=== PATIENT | female | born 1940 | race African-American/Black ===

== ENCOUNTER 2018-06-06 15:37 | Inpatient (IN) | payer OTHER ==
[~2018-06-06] VITALS: Ht 172.7 cm; Wt 97.1 kg
[2018-06-06] MEDS ORDERED: Sodium Chloride 500ML 500 ML IV ONE (16:04)
[2018-06-06] MEDS ORDERED: Solu-MEDROL 125mg Inj IVP ONE (16:15)
[2018-06-06] MEDS ORDERED: Albuterol ud Inhalation HHN ONE (16:15)
[2018-06-06] MEDS ORDERED: Ipratropium 0.02% Inh Soln 2.5ml UD HHN ONE (16:15)
[2018-06-06 16:30] LABS: EOSINOPHILS % (AUTO) 1.2 % (0.0-3.0); HEMATOCRIT 34.6 % (37.0-47.0); HEMOGLOBIN 11.2 G/DL (12.0-16.0); LYMPHOCYTES % (AUTO) 21.3 % (20.0-45.0); MEAN CORPUSCULAR VOLUME 77 FL (80-99); MONOCYTES % (AUTO) 4.9 % (1.0-10.0); NEUTROPHILS % (AUTO) 69.6 % (45.0-75.0); PLATELET COUNT 647 K/UL (150-450); RED CELL DISTRIBUTION WIDTH 15.2 % (11.6-14.8); WHITE BLOOD COUNT 14.9 K/UL (4.8-10.8)
[2018-06-06 16:38] LABS: ANION GAP 10 mmol/L (5-15); BLOOD UREA NITROGEN 15 mg/dL (7-18); CALCIUM 9.5 MG/DL (8.5-10.1); CARBON DIOXIDE 26 MMOL/L (21-32); CHLORIDE 104 MMOL/L (98-107); CREATININE 1.6 MG/DL (0.55-1.30); POTASSIUM 4.3 MMOL/L (3.5-5.1); SODIUM 140 MMOL/L (136-145)
[2018-06-06 16:42] VITALS: BP 162/77
[2018-06-06 16:46] LABS: ALANINE AMINOTRANSFERASE 23 U/L (12-78); ALBUMIN 3.4 G/DL (3.4-5.0); ALBUMIN/GLOBULIN RATIO 0.8 (1.0-2.7); ALKALINE PHOSPHATASE 67 U/L (46-116); ASPARTATE AMINO TRANSFERASE 13 U/L (15-37); BILIRUBIN,TOTAL 0.3 MG/DL (0.2-1.0); CKMB 1.1 NG/ML (0.0-3.6); CREATINE KINASE 62 U/L (26-308)
--- NOTE | 2018-06-06 17:26 | Diagnostic Imaging Report ---
Indication: Reason For Exam: SOB Technique: One view of the chest Comparison: none Findings: The lungs and pleural spaces are clear. The heart size is normal. Atelectatic bands versus scarring are seen at the right lung base and left suprahilar region Impression: No acute process. Findings as noted
[2018-06-06 18:06] LABS: APPEARANCE,URINE CLEAR; BILIRUBIN, URINE NEGATIVE (NEGATIVE); COLOR,URINE PALE YELLOW; GLUCOSE, URINE (UA) NEGATIVE (NEGATIVE); KETONES,URINE NEGATIVE (NEGATIVE); LEUKOCYTE ESTERASE ,URINE NEGATIVE (NEGATIVE); NITRITE,URINE NEGATIVE (NEGATIVE); PH,URINE 6.5 (4.5-8.0); PROTEIN,URINE NEGATIVE (NEGATIVE); UROBILINOGEN,URINE NORMAL MG/DL (0.0-1.0)
[2018-06-06] MEDS ORDERED: SYMBICORT 16010.2 G1 IH (19:16)
[2018-06-06] MEDS ORDERED: METFORMIN HCL500 M1 ORAL ×2 (19:16→21:00)
[2018-06-06] MEDS ORDERED: TORSEMIDE10 MG PO (19:16)
[2018-06-06] MEDS ORDERED: COLACE100 MG ORAL (19:16)
[2018-06-06] MEDS ORDERED: ASPIR 8181 MG ORAL (19:16)
[2018-06-06] MEDS ORDERED: BUSPAR10 MG ORAL (19:16)
[2018-06-06] MEDS ORDERED: LORAZEPAM0.5 MG ORAL (19:16)
--- NOTE | 2018-06-06 19:25 | Emergency Room Report ---
History of Present Illness General Chief Complaint: Dyspnea/Respdistress Source: Patient, Family Member, EMS Present Illness HPI 77-year-old female presents ED for evaluation patient brought in by EMS for evaluation of shortness of breath and weakness times one week. History of COPD. Complaining of cough. Denies chest pain. Denies fevers or chills. States she is on home oxygen but feels more short of breath than usual. Also states she feels very weak with poor appetite. States that she was recently started on buspirone. Recent admission to [facility] for COPD and [facility]. Denies leg swelling. No other aggravating relieving factors. Denies any other associated symptoms Allergies: Coded Allergies: No Known Allergies (Unverified , 06/06/18) Patient History Past Medical History: DM, HTN, COPD Past Surgical History: none Pertinent Family History: none Social History: Denies: smoking, alcohol use, drug use Now: No Immunizations: UTD Reviewed Nursing Documentation: PMH: Agreed; PSxH: Agreed Nursing Documentation-PMH Past Medical History: No History, Except For Hx Cardiac Problems: No - CHF Hx Hypertension: Yes Hx COPD: Yes Hx Diabetes: Yes Review of Systems All Other Systems: negative except mentioned in HPI Physical Exam Vital Signs Date Time Temp Pulse Resp B/P (MAP) Pulse Ox O2 Delivery O2 Flow Rate FiO2 06/06/18 15:30 98.6 88 20 155/76 91 Room Air 06/06/18 16:37 28 06/06/18 16:41 2.0 Sp02 EP Interpretation: reviewed, normal General Appearance: no apparent distress, alert, GCS 15, non-toxic Head: normocephalic, atraumatic Eyes: bilateral eye normal inspection, bilateral eye PERRL ENT: hearing grossly normal, normal pharynx, no angioedema, normal voice Neck: full range of motion, supple/symm/no masses Respiratory: chest non-tender, normal breath sounds, speaking full sentences, wheezing Cardiovascular #1: regular rate, rhythm, no edema Cardiovascular #2: 2+ carotid (R), 2+ carotid (L), 2+ radial (R), 2+ radial (L) , 2+ dorsalis pedis (R), 2+ dorsalis pedis (L) Gastrointestinal: normal bowel sounds, non tender, soft, non-distended, no guarding, no rebound Rectal: deferred Genitourinary: normal inspection, no CVA tenderness Musculoskeletal: back normal, gait/station normal, normal range of motion, non- tender Neurologic: alert, oriented x3, responsive, motor strength/tone normal, sensory intact, speech normal Psychiatric: judgement/insight normal, memory normal, mood/affect normal, no suicidal/homicidal ideation Reflexes: 3+ bicep (R), 3+ bicep (L), 3+ tricep (R), 3+ tricep (L), 3+ knee (R) , 3+ knee (L) Skin: normal color, no rash, warm/dry, well hydrated Lymphatic: no adenopathy Medical Decision Making Diagnostic Impression: Primary Impression: COPD exacerbation Additional Impression: Renal insufficiency ER Course Hospital Course 77-year-old F presenting to ED with SOB. h/o COPD Differential diagnoses include: Pneumonia, CHF exacerbation, pneumothorax, fluid overload Clinical course Patient placed on stretcher. 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 After initial history and physical, I ordered nebulizer treatments. I ordered labs, IV fluids, EKG, chest x-ray, blood cultures, UA. Labs - no leukocytosis noted, hemoglobin/hematocrit stable, Cr 1.6, lactate okay , troponins negative CXR - no infiltrates EKG - NSR, some PVCs, no acute ischemic changes interpreted by me given abx. discussed findings with patient and family Case discussed with Dr. Marte and he agreed to the patient to his service for further care and support I feel this is a highly complex case requiring extensive working including EKG/ Rhythm strip, Xray/CT/US, Blood/urine lab work, repeat exams while in ED, and administration of strong opiates/narcotics for pain control, admission to hospital or close patient follow up. Diagnosis - COPD exacerbation, renal insufficiency Patient admitted to telemetry in serious condition Labs Test 06/06/18 16:00 06/06/18 17:38 White Blood Count 14.9 K/UL (4.8-10.8) Red Blood Count 4.50 M/UL (4.20-5.40) Hemoglobin 11.2 G/DL (12.0-16.0) Hematocrit 34.6 % (37.0-47.0) Mean Corpuscular Volume 77 FL (80-99) Mean Corpuscular Hemoglobin 24.8 PG (27.0-31.0) Mean Corpuscular Hemoglobin Concent 32.2 G/DL (32.0-36.0) Red Cell Distribution Width 15.2 % (11.6-14.8) Platelet Count 647 K/UL (150-450) Mean Platelet Volume 5.8 FL (6.5-10.1) Neutrophils (%) (Auto) 69.6 % (45.0-75.0) Lymphocytes (%) (Auto) 21.3 % (20.0-45.0) Monocytes (%) (Auto) 4.9 % (1.0-10.0) Eosinophils (%) (Auto) 1.2 % (0.0-3.0) Basophils (%) (Auto) 3.0 % (0.0-2.0) Sodium Level 140 MMOL/L (136-145) Potassium Level 4.3 MMOL/L (3.5-5.1) Chloride Level 104 MMOL/L (98-107) Carbon Dioxide Level 26 MMOL/L (21-32) Anion Gap 10 mmol/L (5-15) Blood Urea Nitrogen 15 mg/dL (7-18) Creatinine 1.6 MG/DL (0.55-1.30) Estimat Glomerular Filtration Rate mL/min (>60) Glucose Level 82 MG/DL (74-106) Lactic Acid Level 1.40 mmol/L (0.4-2.0) Calcium Level 9.5 MG/DL (8.5-10.1) Total Bilirubin 0.3 MG/DL (0.2-1.0) Aspartate Amino Transf (AST/SGOT) 13 U/L (15-37) Alanine Aminotransferase (ALT/SGPT) 23 U/L (12-78) Alkaline Phosphatase 67 U/L (46-116) Total Creatine Kinase 62 U/L (26-308) Creatine Kinase MB 1.1 NG/ML (0.0-3.6) Creatine Kinase MB Relative Index 1.7 Troponin I 0.002 ng/mL (0.000-0.056) Pro-B-Type Natriuretic Peptide 648 pg/mL (0-125) Total Protein 7.8 G/DL (6.4-8.2) Albumin 3.4 G/DL (3.4-5.0) Globulin 4.4 g/dL Albumin/Globulin Ratio 0.8 (1.0-2.7) Urine Color Pale yellow Urine Appearance Clear Urine pH 6.5 (4.5-8.0) Urine Specific [place] 1.010 (1.005-1.035) Urine Protein Negative (NEGATIVE) Urine Glucose (UA) Negative (NEGATIVE) Urine Ketones Negative (NEGATIVE) Urine Blood Negative (NEGATIVE) Urine Nitrite Negative (NEGATIVE) Urine Bilirubin Negative (NEGATIVE) Urine Urobilinogen Normal MG/DL (0.0-1.0) Urine Leukocyte Esterase Negative (NEGATIVE) EKG Diagnostic Results Rate: normal Rhythm: NSR ST Segments: no acute changes ASA given to the pt in ED: No Rhythm Strip Diag. Results EP Interpretation: yes Rhythm: NSR, other - PVCs Chest X-Ray Diagnostic Results Chest X-Ray Diagnostic Results : Chest X-Ray Ordered: Yes # of Views/Limited/Complete: 1 View Indication: Shortness of Breath EP Interpretation: Yes Interpretation: no pneumothorax, no acute cardiopulmonary disease, other - atelectasis Impression: No acute disease Electronically Signed by: Electronically signed by Phoenix Gómez MD Last Vital Signs Date Time Temp Pulse Resp B/P (MAP) Pulse Ox O2 Delivery O2 Flow Rate FiO2 06/06/18 16:42 98.0 74 17 162/77 100 Nasal Cannula 2.0 06/06/18 16:41 100 Status: improved Disposition: ADMITTED INPATIENT Condition: Serious Referrals: [facility],REFERRING (PCP) Phoenix Gómez MD Jun 06, 2018 19:25
[2018-06-06 19:30] VITALS: BP 165/64
[2018-06-06] MEDS ORDERED: AMBIEN5 MG ORAL (21:00)
[2018-06-06] MEDS ORDERED: TORSEMIDE5 MG ORAL (21:00)
[2018-06-06] MEDS ORDERED: GABAPENTIN300 MG ORAL (21:00)
[2018-06-06] MEDS ORDERED: LOSARTAN POTAS100 MG ORAL (21:00)
[2018-06-06] MEDS ORDERED: METOPROLOL TART25 MG ORAL (21:00)
[2018-06-06] MEDS ORDERED: BUSPIRONE HCL10 M1 ORAL (21:00)
[2018-06-06] MEDS ORDERED: INCRUSE ELLI62.5 MCG IH (21:00)
[2018-06-06] MEDS ORDERED: LORAZEPAM0.5 GM MC (21:00)
[2018-06-06] MEDS ORDERED: GLIMEPIRIDE1 MG ORAL (21:00)
[2018-06-06] MEDS ORDERED: ATORVASTATIN CA20 MG ORAL (21:00)
[2018-06-06] MEDS ORDERED: NEXIUM2.5 MG ORAL (21:00)
[2018-06-06] MEDS ORDERED: ASPIRIN81 M3 PO (21:00)
[2018-06-06 21:45] VITALS: BP 146/88
[2018-06-06] MEDS ORDERED: Miralax 17gm pkt ORAL PRN (22:15)
[2018-06-06] MEDS ORDERED: Zolpidem 5mg tab ORAL PRN (22:15)
[2018-06-06] MEDS ORDERED: Nitroglycerin Subl 0.4mg tab SL PRN (22:15)
[2018-06-06] MEDS: Albuterol/Ipratropium 3ml neb HHN SCH (23:17)
[2018-06-07] VITALS: BP 137/68
[2018-06-07] MEDS: Albuterol/Ipratropium 3ml neb HHN SCH ×6 (03:54→23:11)
[2018-06-07 04:00] VITALS: BP 135/71
[2018-06-07 08:00] VITALS: BP 124/66
--- NOTE | 2018-06-07 08:57 | History & Physical ---
History and Physical History & Physicial dict Santana Marte MD Jun 07, 2018 08:57
[2018-06-07] MEDS ORDERED: metFORMIN 500mg tab ORAL SCH (09:00)
[2018-06-07] MEDS ORDERED: Docusate 100mg cap ORAL SCH (09:00)
[2018-06-07] MEDS: Depo-Medrol 80mg Vial IARTIC ONE ×2 (09:00→09:08)
[2018-06-07] MEDS: Metoprolol 25mg tab ORAL SCH (09:01)
[2018-06-07] MEDS: Aspirin Baby 81mg ORAL SCH (09:02)
[2018-06-07] MEDS: Docusate 100mg cap ORAL SCH ×2 (09:02→20:47)
[2018-06-07] MEDS: BusPIRone 10mg Tab ORAL SCH ×3 (09:02→17:09)
[2018-06-07] MEDS: Losartan 50mg tab ORAL SCH (09:03)
[2018-06-07] MEDS: Heparin 5000 units/ml inj SUBQ SCH ×2 (09:04→20:48)
[2018-06-07 09:56] LABS: BASOPHILS % (AUTO) 0.5 % (0.0-2.0); HEMATOCRIT 33.2 % (37.0-47.0); HEMOGLOBIN 10.7 G/DL (12.0-16.0); LYMPHOCYTES % (AUTO) 10.6 % (20.0-45.0); MEAN CORPUSCULAR VOLUME 77 FL (80-99); MONOCYTES % (AUTO) 5.3 % (1.0-10.0); NEUTROPHILS % (AUTO) 83.6 % (45.0-75.0); PLATELET COUNT 491 K/UL (150-450); RED BLOOD COUNT 4.32 M/UL (4.20-5.40); RED CELL DISTRIBUTION WIDTH 16.1 % (11.6-14.8); WHITE BLOOD COUNT 13.5 K/UL (4.8-10.8)
[2018-06-07 10:03] LABS: ANION GAP 13 mmol/L (5-15); BLOOD UREA NITROGEN 20 mg/dL (7-18); CALCIUM 9.1 MG/DL (8.5-10.1); CARBON DIOXIDE 22 MMOL/L (21-32); CHLORIDE 104 MMOL/L (98-107); CREATININE 1.7 MG/DL (0.55-1.30); POTASSIUM 5.3 MMOL/L (3.5-5.1); SODIUM 139 MMOL/L (136-145)
[2018-06-07] MEDS: Torsemide 10mg tab ORAL SCH (10:58)
[2018-06-07 12:00] VITALS: BP 101/62
--- NOTE | 2018-06-07 12:45 | History and Physical Report ---
DATE OF ADMISSION: 06/06/2018 HISTORY OF PRESENT ILLNESS: The patient is a 77-year-old woman, who was admitted with shortness of breath. She states she has had one or two days of increasing shortness of breath. She has some cough with clear to yellow sputum. She has no high fever and no chest pain. She was seen in the emergency department and found to have exacerbation of COPD and admission was arranged. She is feeling better after receiving breathing treatments and steroids. She was recently tapered off of steroids since recent discharge from [facility] about a month ago. She spent a short time at [facility] and then has been home. ALLERGIES: Morphine, amlodipine, and atorvastatin. MEDICATIONS: Albuterol inhaler, baby aspirin, atorvastatin (note, allergy listed above), Symbicort, BuSpar, Colace, Nexium, gabapentin, glimepiride, lorazepam, losartan, metformin, Spiriva, torsemide, Incruse, and Ambien. This medication list may be inaccurate. PAST MEDICAL HISTORY: COPD, coronary heart disease, lung cancer resected right lung in 2001, aortic atherosclerosis, carotid artery disease, chronic heart failure, hyperlipidemia, hypertension, peripheral artery disease, secondary hyperparathyroidism, diabetes with polyneuropathy, thrombocytosis, chronic anxiety, panic disorder, sedative dependence, and generalized weakness. REVIEW OF SYSTEMS: Otherwise unremarkable. PAST SURGICAL HISTORY: Includes right lower lobectomy and several VATS wedge resections for lung cancer, carotid endarterectomy, endoscopy, hysterectomy, cholecystectomy, cataract surgery, and angioplasty with stent. SOCIAL HISTORY: She is a past smoker. She does not drink or use drugs. FAMILY HISTORY: The parents are . There is a family history of alcohol abuse and rheumatoid arthritis and stroke. PHYSICAL EXAMINATION: GENERAL: The patient is alert and responds appropriately. She is ambulating to the bathroom independently. VITAL SIGNS: Stable. She is overweight at 169 pounds and 68 inches in height. The blood pressure has been somewhat elevated at 165/64, but today is down to 135/71. SKIN: Warm and dry. HEAD: Normocephalic. NECK: No jugular venous distention. CHEST: Decreased breath sounds, but no wheezing or consolidation. CARDIAC: Rhythm is regular without murmur or gallop. ABDOMEN: Soft and nontender. Liver and spleen not enlarged. EXTREMITIES: No clubbing, cyanosis, or edema. LABORATORY AND DIAGNOSTIC DATA: Chest x-ray is negative. Laboratory studies showed white count is elevated at 14,900, hemoglobin is 11.2 with microcytic indices, platelet count is 647,000. Chemistry shows creatinine 1.6, which is near her baseline. Creatinine was 1.7 a month ago and 1.3 prior to that. BNP is elevated at 348. Troponin is negative. Urinalysis is negative. IMPRESSION: 1. COPD exacerbation. 2. Congestive heart failure. 3. Coronary heart disease. 4. History of lung cancer. PLAN: The patient seems to be improved with breathing treatments and steroids. We will continue current therapy and arrange for early discharge with nebulizer at home. Santana Marte M.D. DR: VALERIA JOB#: [id number] CC: Santana Marte M.D.; Fax#: [phone] [facility]
[2018-06-07 16:00] VITALS: BP 112/56
--- NOTE | 2018-06-07 17:13 | Cardiology Report ---
APPROVED REPORT EKG Measurement Heart [id number] Sinus rhythm with frequent premature ventricular complexes Otherwise normal ECG
[2018-06-07 20:00] VITALS: BP 116/57
[2018-06-08] VITALS: BP 141/72
[2018-06-08] MEDS: Albuterol/Ipratropium 3ml neb HHN SCH ×4 (03:00→15:24)
[2018-06-08 08:00] VITALS: BP 136/75
[2018-06-08] MEDS: Torsemide 10mg tab ORAL SCH (09:16)
[2018-06-08] MEDS: Docusate 100mg cap ORAL SCH (09:16)
[2018-06-08] MEDS: Aspirin Baby 81mg ORAL SCH (09:16)
[2018-06-08] MEDS: Metoprolol 25mg tab ORAL SCH (09:17)
[2018-06-08] MEDS: BusPIRone 10mg Tab ORAL SCH ×2 (09:17→13:24)
[2018-06-08] MEDS: Losartan 50mg tab ORAL SCH (09:17)
[2018-06-08] MEDS: Heparin 5000 units/ml inj SUBQ SCH (09:24)
[2018-06-08 12:00] VITALS: BP 119/77
[2018-06-08] MEDS ORDERED: PREDNISONE20 MG ORAL (15:15)
--- NOTE | 2018-06-09 07:11 | Discharge Summary ---
Discharge Summary Discharge Summary _ DATE OF ADMISSION: 06/06/2018 DATE OF DISCHARGE: 06/08/2018 BRIEF HOSPITAL COURSE: Patient is a 77-year-old female, who presented to ED via EMS for evaluation of shortness of breath. Patient had 1-2 days of increasing shortness of breath. She had cough with clear to yellow sputum. There were no of fever, she denied chest pain. She was recently tapered off her steroids since a recent discharge from [facility] about a month ago. She spent a short time but [facility] and was eventually discharged home. On evaluation at ED, she was saturating 91% on room air. Blood work showed WBC 14.9, hemoglobin and hematocrit were stable. Creatinine was elevated to 1.6. Lactic acid was 1.4. Troponin was negative. BNP 648. Urinalysis was unremarkable. Chest x-ray with no acute process. She was admitted for acute COPD exacerbation. She was given nebulizer treatment and steroids. She was continued on home medications. She was placed on heparin for DVT prophylaxis. She was given PT mobility. Symptoms improved. She was eventually discharged home. FINAL DIAGNOSES: Acute COPD exacerbation Congestive heart failure Coronary heart disease History of lung cancer DISPOSITION: Patient was discharged home. DISCHARGE MEDICATIONS: Refer to Discharge Medication List. DISCHARGE INSTRUCTIONS: Follow up with PCP in a week. I have been assigned to dictate discharge summary on this account, and I was not involved in the patient's management. Kena Anne NP Jun 09, 2018 07:11
== END 2018-06-08 16:25 | DRG 192 ==
LOC: EDBD 15:37 → EMR 16:13 → 2E 18:00 → EDBEDREQ 20:55
DX: J44.1 Chronic obstructive pulmonary disease with (acute) exacerbation (principal); I11.0 Hypertensive heart disease with heart failure; I50.9 Heart failure, unspecified; Z85.118 Personal history of other malignant neoplasm of bronchus and lung; Z88.6 Allergy status to analgesic agent; Z88.8 Allergy status to other drugs, medicaments and biological substances; I25.10 Atherosclerotic heart disease of native coronary artery without angina pectoris; Z90.2 Acquired absence of lung [part of]; E78.5 Hyperlipidemia, unspecified; I73.9 Peripheral vascular disease, unspecified; E13.42 Other specified diabetes mellitus with diabetic polyneuropathy; Z90.49 Acquired absence of other specified parts of digestive tract; Z87.891 Personal history of nicotine dependence
CPT/HCPCS: 36415; 71045; 80048; 80053; 81003; 82550; 82553; 83605; 83880; 84484; 85025; 86710; 87040; 93005; 94640; 94664; 94760; 96365; 96375; 99285; J2405; J7620